=== PATIENT | female | born 1955 | race Caucasian/White ===

== ENCOUNTER 2024-06-05 16:20 | Emergency (ER) | payer OTHER, MEDICARE ==
[2024-06-05] MEDS ORDERED: SODIUM CHLORIDE 0.9% 1,000 ML IV STA (16:36)
--- NOTE | 2024-06-05 16:37 | ED ---
SOB HPI - General Chief Complaint: Shortness of Breath Stated Complaint: Resp distress Time Seen by Provider: 06/05/24 16:31 Source: EMS, RN notes reviewed, old records reviewed Mode of arrival: EMS Limitations: no limitations, altered mental status - History of Present Illness Initial Comments: This is a 68-year-old female to the ER today. She presents today for evaluation as a transfer transfer for pneumonia alteration of mental status and difficulty breathing, patient was found to have pneumonia at other facility and presents to our ER And reported patient is a DNR Patient arrives to our ER in extremis with unstable vital signs, unresponsive -: unknown Severity: severe Consistency: constant (Progressively worsened since transport) Improves With: nothing Worsens With: nothing Associated Symptoms: denies other symptoms Treatments Prior to Arrival: oxygen Review of Systems ROS Statement: Those systems with pertinent positive or pertinent negative responses have been documented in the HPI. ROS Other: All systems not noted in ROS Statement are negative. Past Medical History Past Medical History: Unable to Obtain History of Any Multi-Drug Resistant Organisms: Unobtainable Past Surgical History: Unable to Obtain Past Psychological History: Unable to Obtain Smoking Status: Unknown if ever smoked Past Alcohol Use History: Unable to Obtain Past Drug Use History: Unable to Obtain General Exam Limitations: no limitations, altered mental status General appearance: alert, in no apparent distress Head exam: Present: atraumatic, normocephalic, normal inspection Eye exam: Present: normal appearance, PERRL, EOMI. Absent: scleral icterus, conjunctival injection, periorbital swelling ENT exam: Present: normal exam, mucous membranes moist Neck exam: Present: normal inspection. Absent: tenderness, meningismus, lymphadenopathy Respiratory exam: Present: normal lung sounds bilaterally. Absent: respiratory distress, wheezes, rales, rhonchi, stridor Cardiovascular Exam: Present: regular rate, normal rhythm, normal heart sounds. Absent: systolic murmur, diastolic murmur, rubs, gallop, clicks GI/Abdominal exam: Present: soft, normal bowel sounds. Absent: distended, tenderness, guarding, rebound, rigid Extremities exam: Present: normal inspection, full ROM, normal capillary refill. Absent: tenderness, pedal edema, joint swelling, calf tenderness Back exam: Present: normal inspection Neurological exam: Present: alert, oriented X3, CN II-XII intact Psychiatric exam: Present: normal affect, normal mood Skin exam: Present: warm, dry, intact, normal color. Absent: rash Course Vital Signs 06/05/24 06/05/24 06/05/24 16:24 16:29 16:30 Pulse Rate 99 100 Respiratory 24 24 21 Rate Blood Pressure 104/56 104/56 O2 Sat by Pulse 95 93 L Oximetry 06/05/24 06/05/24 06/05/24 16:45 16:54 16:55 Pulse Rate 22 L 0 L 0 L Respiratory 0 L 0 L 0 L Rate Blood Pressure 39/24 115/81 142/69 O2 Sat by Pulse 64 L 21 L Oximetry 06/05/24 06/05/24 06/05/24 16:58 16:59 17:12 Pulse Rate 0 L 0 L 0 L Respiratory 0 L 0 L 0 L Rate Blood Pressure 34/21 109/93 O2 Sat by Pulse 0 L 0 L Oximetry 06/05/24 17:15 Pulse Rate 0 L Respiratory 0 L Rate Blood Pressure 66/35 O2 Sat by Pulse Oximetry - Reevaluation(s) Reevaluation #1: 06/05/24 17:24 Medical records reviewed Reevaluation #2: 06/05/24 17:24 Patient symptoms unchanged patient symptoms continuing to deteriorate here in the ER patient is in no code DNR patient Reevaluation #3: 06/05/24 17:25 Reevaluated found to be in asystole pupils fixed and dilated apneic with no respiratory effort, no cardiac auscultation, patient is pronounced Medical Decision Making - Medical Decision Making 68 female today presenting to emergency department as a no code DNR patient in the active phase of dying. Patient has worsening condition throughout ER stay and pronounced - EKG Data -: EKG Interpreted by Me (EKG is sinus tachycardia 100 OH 266 QRS 118 QTc 390) Disposition Clinical Impression: Cardiac arrest Disposition: Condition: Critical Is patient prescribed a controlled substance at d/c from ED?: No Referrals: Steven Wilson DO [Primary Care Provider] - 1-2 days Time of Disposition: 17:25 Preliminary Cause of : CPA
[2024-06-05 16:53] VITALS: RESP 0
[2024-06-05 16:55] VITALS: PULSE 0
[2024-06-05 17:16] VITALS: BP 66/35
== END 2024-06-05 17:18 | disposition expired ==
LOC: EC 16:20
DX: I46.9 Cardiac arrest, cause unspecified (principal)
CPT/HCPCS: 93005; 96360; 99285